=== PATIENT | female | born 1965 | race Caucasian/White ===

== ENCOUNTER 2017-02-19 20:04 | Emergency (ER) | payer MEDICAID ==
[~2017-02-19] VITALS: Ht 157.5 cm; Wt 77.2 kg
[2017-02-19 22:37] LABS: BASOPHIL % 0.2 % (0-2); PLATELET COUNT 351 x10^3mcL (130-400); RED CELL DISTRIBUTION WIDTH 13.3 % (11.5-14.5)
[2017-02-19 22:59] LABS: CARBON DIOXIDE 28.2 mmol/L (21-32); CHLORIDE SERUM 105 mmol/L (98-107); CREATININE SERUM 0.8 mg/dL (0.6-1.0); GFR1 > 60 mL/min; GLUCOSE SERUM 139 mg/dL (74-106); POTASSIUM SERUM 3.7 mmol/L (3.5-5.1); SODIUM SERUM 143 mmol/L (136-145)
[2017-02-19 23:03] LABS: ALBUMIN 3.9 g/dL (3.4-5.0); ALKALINE PHOSPHATASE 87 U/L (46-116); ALT/SGPT 38 U/L (14-59); AST/SGOT 22 U/L (15-37); BILIRUBIN TOTAL 0.5 mg/dL (0.20-1.00); LIPASE 84 IU/L (73-393); TOTAL PROTEIN, SERUM 8.2 g/dL (6.4-8.2); TRIGLYCERIDES 78 mg/dL (<150)
[2017-02-19 23:07] LABS: CHOLESTEROL 217 mg/dL (<200); CHOLESTEROL/HDL RATIO 2.4; HDL CHOLESTEROL 92 mg/dL (40-60)
[2017-02-20] LABS: T3 TOTAL 0.96 ng/mL
[2017-02-20 00:15] LABS: FREE T4 0.81 ng/dL (0.76-1.46); FREE THYROXINE INDEX 2.4 ug/dL (1.4-4.5); T4(THYROXINE) 7.7 ug/dL (4.7-13.3)
[2017-02-20 01:22] VITALS: BP 147/93
== END 2017-02-20 00:42 | disposition home or self-care (01) ==
LOC: ED 20:04
PROVIDERS: Specialist
DX: H81.10 Benign paroxysmal vertigo, unspecified ear (principal); I10 Essential (primary) hypertension
CPT/HCPCS: 83880; 84439; J0780; J7030; J8597; Q0092

== ENCOUNTER 2019-11-08 23:33 | Emergency (ER) | payer MEDICAID ==
[2019-11-08 23:45] VITALS: Ht 160 cm
[2019-11-09 02:33] VITALS: BP 148/71
== END 2019-11-09 02:15 | disposition home or self-care (01) ==
LOC: ED 23:33
DX: S80.01XA Contusion of right knee, initial encounter (principal); S60.222A Contusion of left hand, initial encounter; I10 Essential (primary) hypertension; W01.0XXA Fall on same level from slipping, tripping and stumbling without subsequent striking against object, initial encounter; Y93.89 Activity, other specified; Y92.89 Other specified places as the place of occurrence of the external cause; Y99.8 Other external cause status
CPT/HCPCS: A4570; J1885; Q0092

== ENCOUNTER 2020-01-19 12:45 | Emergency (ER) | payer MEDICAID, SELFPAY ==
[2020-01-19 14:59] VITALS: BP 141/88
== END 2020-01-19 14:59 | disposition home or self-care (01) ==
LOC: ED 12:45
DX: B34.9 Viral infection, unspecified (principal); I10 Essential (primary) hypertension
CPT/HCPCS: U0003